=== PATIENT | male | born 1965 | race Caucasian/White ===

== ENCOUNTER 2024-06-08 21:01 | Emergency (ER) | payer OTHER ==
[2024-06-08] MEDS ORDERED: Pantoprazole 40 MG in Sodium Chloride 0.9% 100 ML IV SCH (21:15)
[2024-06-08 21:40] LABS: BASOPHILS PERCENT AUTO 0.5 % (0.0-1.0); HEMATOCRIT 23.7 % (40.0-54.0); HEMOGLOBIN 7.2 g/dL (14.0-18.0); LYMPHOCYTES PERCENT AUTO 9.3 % (20.5-50.1); MEAN CORPUSCULAR HEMOGLOBIN 26.7 pg (27.0-34.0); MEAN CORPUSCULAR HGB CONC 30.4 g/dL (33.0-35.0); MEAN CORPUSCULAR VOLUME 87.8 fL (80-100); NEUTROPHILS PERCENT AUTO 82.2 % (42.2-75.2); PLATELET COUNT,PLT 95 10^3/uL (150-450)
[2024-06-08] MEDS: Sodium Chloride 0.9% 1,000 ML IV ONE ×2 (21:45→22:40)
[2024-06-08] MEDS: Ondansetron 4 MG/2 ML SDV IVPUSH ONE ×2 (21:51→23:44)
[2024-06-08] MEDS: Pantoprazole 40 MG Vial IVPUSH ONE (21:51)
[2024-06-08 22:00] LABS: A/G RATIO 0.6; ALBUMIN 2.7 g/dL (3.4-5.0); ANION GAP 18.8 mEq/L (7-13); BILIRUBIN TOTAL 2.1 mg/dL (0.2-1.0); BUN/CREATININE RATIO 20.9 (No establ ref range); CREATININE 1.1 mg/dL (0.70-1.30); EST CRCL DRUG DOSING (CG) 78.38 mL/min; MAGNESIUM 1.6 mg/dL (1.8-2.4); POTASSIUM,K 3.8 mmol/L (3.5-5.1); PROTEIN TOTAL,TP 7.2 g/dL (6.4-8.2)
[2024-06-08 22:05] LABS: INR 1.3 (0.9-1.2); LACTIC ACID 4.8 mmol/L (0.4-2.0); PROTHROMBIN TIME 13.1 SEC (9.0-12.0); PTT,PARTIAL THROMBOPLSTIN TIME 24.7 SEC (22.0-34.0)
[2024-06-08] MEDS: cefTRIAXone 1 GM Vial IVPUSH ONE (22:28)
[2024-06-08] MEDS: Octreotide 100 MCG in Sodium Chloride 0.9% 99 ML IV SCH (22:39)
[2024-06-08] MEDS: Magnesium Sulfate/Water Premix 2 GM in Premix Bag 1 BAG IV ONE (22:40)
[2024-06-08 23:05] LABS: CORONAVIRUS COVID-19 NAA NEGATIVE (NEGATIVE); INFLUENZA A NAA NEGATIVE (NEGATIVE); INFLUENZA B NAA NEGATIVE (NEGATIVE); RESPIRATORY SYNCYTIAL VIR NAA NEGATIVE (NEGATIVE)
[2024-06-08] MEDS: Metoclopramide 10 MG/2 ML SDV IVPUSH ONE (23:38)
[2024-06-09 00:02] LABS: APPEARANCE,URINE CLEAR (CLEAR); BILIRUBIN,URINE NEGATIVE (NEGATIVE); COLOR,URINE YELLOW (YELLOW); GLUCOSE,URINE NEGATIVE (NEGATIVE); KETONES,URINE 40 (NEGATIVE); LEUKOCYTE ESTERASE,URINE NEGATIVE (NEGATIVE); NITRITE,URINE NEGATIVE (NEGATIVE); OCCULT BLOOD,URINE LARGE (NEGATIVE); PROTEIN,URINE NEGATIVE (NEGATIVE)
[2024-06-09 00:14] LABS: BACTERIA,URINE FEW /HPF (0-FEW/HPF); EPITHELIAL CELLS,URINE FEW /HPF (NOT SEEN); RBC,URINE 20-30 /HPF (0-5); WBC,URINE 0-5 /HPF (0-5/HPF)
== END 2024-06-09 00:15 ==
LOC: DL.ED 21:01
DX: K92.2 Gastrointestinal hemorrhage, unspecified (principal); D64.9 Anemia, unspecified; R91.8 Other nonspecific abnormal finding of lung field; I10 Essential (primary) hypertension; E78.00 Pure hypercholesterolemia, unspecified; Z79.899 Other long term (current) drug therapy; Z88.8 Allergy status to other drugs, medicaments and biological substances
CPT/HCPCS: 0241U; 36415; 36430; 71045; 80053; 80307; 81001; 83605; 83690; 83735; 84145; 85025; 85610; 85730; 86850; 86900; 86901; 86920; 86922; 87040; 96365; 96366; 96375; 96376; 99285; 99285-25; J0696; J2354-JA; J2405; J2470; J2765; J3475; J3490; J7030; P9016